=== PATIENT | female | born 1970 ===

== ENCOUNTER 2022-02-19 21:07 | Emergency (ER) | payer OTHER ==
[~2022-02-19] VITALS: Ht 167.6 cm; Wt 75.0 kg
[2022-02-19] MEDS ORDERED: INSU100V12 SQ (21:16)
[2022-02-19 21:30] VITALS: BP 141/90
[2022-02-19] MEDS ORDERED: DOXYCYCLINE HYCLATE 100 MG TABLET PO ONE (21:45)
[2022-02-19] MEDS ORDERED: BACITRACIN 28 GM OINTMENT TP ONE (21:45)
[2022-02-19] MEDS ORDERED: PERTUSS(ACELL),DIPH,TET VAC/PF 0.5 ML SYRINGE IM. ONE (21:45)
[2022-02-19] MEDS ORDERED: ACETAMINOPHEN 500 MG TABLET PO ONE (21:45)
[2022-02-19] MEDS ORDERED: DOXY-354 PO (21:46)
[2022-02-19] MEDS ORDERED: ACET-3385 PO (21:53)
== END 2022-02-19 22:01 | disposition home or self-care (01) ==
LOC: EMS 21:09
DX: T25.221A Burn of second degree of right foot, initial encounter (principal); E11.9 Type 2 diabetes mellitus without complications; X12.XXXA Contact with other hot fluids, initial encounter; Y93.89 Activity, other specified; Y92.89 Other specified places as the place of occurrence of the external cause; Y99.8 Other external cause status
CPT/HCPCS: 16000; 90471; 90715; 99283